=== PATIENT | male | born 1950 | race Caucasian/White ===

== ENCOUNTER → 2017-01-25 | Outpatient (CLI) | payer SELFPAY ==
[~2017-01-25] MED LIST: AMARYL1 MG PO; CENTRUM1 TA1 PO; DIOVAN160 MG PO; TRILIPIX45 M1 PO; VYTORIN 10 MG-41 TAB PO
== END ==
LOC: UTC.OUT 09:00
DX: Z02.4 Encounter for examination for driving license (principal)